=== PATIENT | female | born 1960 | race Caucasian/White ===

== ENCOUNTER 2016-06-01 14:12 | Emergency (ER) | payer MEDICARE, OTHER ==
[~2016-06-01] VITALS: Ht 172.7 cm; Wt 77.1 kg
[~2016-06-01 14:12] MED LIST: LEVO50TA PO; LEVO50TA8 PO; LIDO30AD10 TP; MECL-102 PO; MECL25TA3 PO
[2016-06-01] MEDS ORDERED: HYDROMORPHONE INJ 2 MG/ML DISP.SYRIN IV ONE (14:30)
[2016-06-01] MEDS ORDERED: IV NS 0.9% 1,000 ML BAG IV ONE (14:30)
[2016-06-01] MEDS ORDERED: ONDANSETRON HCL/PF 4 MG/2 ML VIAL IVP ONE (14:30)
[2016-06-01] MEDS ORDERED: IV SET PRIMARY 1 EA INFUS.SET MC ONE (14:38)
[2016-06-01] MEDS ORDERED: ONDANSETRON HCL/PF 4 MG/2 ML VIAL ONE (14:38)
[2016-06-01] MEDS ORDERED: IV NS 0.9% 1,000 ML ONE (14:38)
[2016-06-01] MEDS ORDERED: HYDROMORPHONE 1 MG/1 ML DISP.SYRIN ONE (14:38)
[2016-06-01 14:41] LABS: BASOPHILS # (AUTO) 0.2 /CMM (0.0-0.2); BASOPHILS % (AUTO) 2.3 % (0.0-2.0); DIFF TOTAL % 100 %; EOSINOPHILS # (AUTO) 0.2 /CMM (0.0-0.7); EOSINOPHILS % (AUTO) 1.9 % (0.0-6.0); HEMATOCRIT 34 % (33-45); HEMOGLOBIN 11.1 g/dL (11.5-14.8); LYMPHOCYTES # (AUTO) 1.9 /CMM (0.8-4.8); LYMPHOCYTES % (AUTO) 21.3 % (20.0-44.0); MEAN CORPUSCULAR HEMOGLOBIN 27 PG (26.0-33.0); MEAN CORPUSCULAR HGB CONC 33 g/dl (31.0-36.0); MEAN CORPUSCULAR VOLUME 83 fL (82-100); MONOCYTES # (AUTO) 0.5 /CMM (0.1-1.30); MONOCYTES % (AUTO) 5.6 % (2.0-12.0); NEUTROPHILS # (AUTO) 6.3 /CMM (1.8-8.9); NEUTROPHILS % (AUTO) 68.9 % (43.0-81.0); PLATELET COUNT (AUTO) 296 /CMM (150-450); RED BLOOD CELL COUNT(AUTO) 4.06 MIL/uL (4.0-5.2); WHITE BLOOD COUNT (AUTO) 9.1 K/uL (4.3-11.0)
[2016-06-01 14:55] LABS: ALBUMIN 3.2 g/dL (3.4-5.0); BILIRUBIN,TOTAL 0.2 mg/dL (0.2-1.0); CALCIUM, SERUM 8.4 mg/dL (8.5-10.1); CREATININE 0.9 mg/dL (0.6-1.3); TOTAL PROTEIN, SERUM 6.5 g/dL (6.4-8.2)
[2016-06-01 14:56] LABS: INDIRECT BILIRUBIN 0.2 mg/dL (0.0-1.1)
[2016-06-01 16:01] VITALS: BP 121/66
== END 2016-06-01 16:02 | disposition home or self-care (01) ==
LOC: ER 14:13
DX: R10.84 Generalized abdominal pain (principal); F41.9 Anxiety disorder, unspecified; F17.200 Nicotine dependence, unspecified, uncomplicated
CPT/HCPCS: 36415; 80048-TC; 80076-TC; 83690-TC; 85025-TC; A4606; J1170; J2405; J7030; Z7610